=== PATIENT | male | born 1965 | race Caucasian/White ===

== ENCOUNTER 2017-04-17 19:54 | Emergency (ER) | payer OTHER ==
[2017-04-17 20:01] VITALS: BP 125/76; PULSE 68; RESP 16; TEMP 98.6; O2SAT 98
--- NOTE | 2017-04-17 20:24 | EDPHY ---
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 Complaining of pain to the distal radius dorsal wrist. No paresthesia. No head injury. No proximal pain or injury. PHYSICAL EXAM (Prior to examination, patient consented to physical exam, hands were washed and my usual and customary physical exam procedures followed) 1) GENERAL: Well-developed, well-nourished, alert and oriented. Appears to be in no acute distress. 2) HEAD: Normocephalic 3) HEENT: Pupils equal, round, reactive to light bilaterally. 4) LUNGS: Breathing comfortably. 5) MUSCULOSKELETAL: Soft compartments. Normal coloration. No deformity no angulation. 6) SKIN: Intact 7) VASCULAR: pulses and cap refill present are brisk 8) NEUROLOGIC: Radial, ulnar, median nerve function intact with no deficits appreciated on exam DIFFERENTIAL DIAGNOSIS: in no particular order including but not limited to fracture, sprain, compartment syndrome Procedure: Splint A Velcro volar splint was applied by ER field support technician. After application of the splint I returned and re-examined the patient. The splint was adequately immobilizing the joint and distal to the splint the patient's circulation and sensation were intact. Patient shows no signs of compartment syndrome. Was given orthopedic precautions. Smoking Status: Never smoked Constitutional: Initial Vital Signs Temperature (C) 37.0 C 04/17/17 19:57 Heart Rate 68 04/17/17 19:57 Respiratory Rate 16 04/17/17 19:57 Blood Pressure 125/76 H 04/17/17 19:57 O2 Sat (%) 98 04/17/17 19:57 O2 Delivery Mode Room Air Allergies/Adverse Reactions: erythromycin base [Erythromycin Base] Allergy (Verified 05/10/09 14:20) meperidine HCl [From Demerol] Allergy (Verified 05/10/09 14:20) Home Medications: Medication Instructions Recorded Crestor 04/17/17 Lisinopril 04/17/17 MDM/Departure - [facility] Imaging Results: Imaging Impressions Wrist X-Ray 04/17/17 20:01 Impression: Equivocal, age indeterminate triquetral fracture noted only on the lateral view. Images reviewed myself - Depart Disposition: Home, Routine, Self-Care Clinical Impression: Fall from slipping on ice Qualifiers: Encounter type: initial encounter Qualified Code(s): W00.9XXA - Unspecified fall due to ice and snow, initial encounter Left wrist fracture Qualifiers: Encounter type: initial encounter Fracture type: closed Qualified Code(s): S62.102A - Fracture of unspecified carpal bone, left wrist, initial encounter for closed fracture Condition: Good Instructions: Wrist Fracture in Adults (ED) Additional Instructions: Return to the ER immediately if you experience discoloration, have worsening pain, numbness, tingling, or any other symptoms that concern you. If you received x-rays in the emergency department today, be advised, that ligamentous , tendon, muscular, and other non-bony injury cannot be fully ruled out. Try to keep your affected extremity elevated above the level of your chest, and keep cold packs on the affected area, for the next 48 hours. Referrals: Paddy Dupree MD [Medical Doctor] - 2-3 days, call for appt.
== END 2017-04-17 20:59 | disposition home or self-care (01) ==
DX: S62.112A Displaced fracture of triquetrum [cuneiform] bone, left wrist, initial encounter for closed fracture (principal); W00.9XXA Unspecified fall due to ice and snow, initial encounter; Y92.69 Other specified industrial and construction area as the place of occurrence of the external cause; Y99.0 Civilian activity done for income or pay; Y93.01 Activity, walking, marching and hiking